=== PATIENT | male | born 1960 | race Two or more races ===

== ENCOUNTER → 2019-08-04 | Emergency (ER) | payer MEDICAID, OTHER ==
[~2019-08-04] VITALS: Ht 180.3 cm; Wt 81.6 kg
[~2019-08-04] MED LIST: KETOROLAC TROMETH 30 MG/ML 1ML VIAL IV ONE; LABETALOL HCL 5 MG/ML 4ML SYRINGE IV ONE
[2019-08-04 09:14] LABS: Eosinophils # (auto) 0 10 ^3/uL (0-0.8); Lymphocytes # (auto) 0.7 10 ^3/uL (0.4-5.4); Mean Corpuscular Volume 106.5 fL (80.0-100.0); Neutrophils # (auto) 3.8 10 ^3/uL (1.6-8.6); White Blood Cell 5.1 10^3/uL (4.4-10.8)
[2019-08-04 09:16] LABS: Basophils # (auto) 0.1 10 ^3/uL (0-0.2); Basophils % (auto) 1.2 % (0.0-2.0); Eosinophils % (auto) 0.8 % (0.0-7.0); Hematocrit 49.8 % (41.0-53.0); Hemoglobin 17.1 g/dL (13.5-17.5); Lymphocytes % (auto) 13.3 % (10.0-50.0); Mean Corpuscular Hemoglobin 36.6 pg (28.0-32.0); Mean Corpuscular Hgb Conc. 34.4 g/dL (32.0-36.0); Monocytes # (auto) 0.6 10 ^3/uL (0-1.3); Monocytes % (auto) 10.8 % (0.0-12.0); Neutrophils % (auto) 73.9 % (37.0-80.0); Platelet Count (auto) 153 10^3/uL (140-450); Red Blood Cells 4.67 10^6/uL (4.5-5.90); Red Cell Distribution Width 13.4 % (11.8-14.3)
[2019-08-04 09:36] LABS: Albumin 3.6 g/dL (3.4-5.0); Anion Gap 10 (5-15); Blood Urea Nitrogen 5 mg/dL (7-18); Calcium 8.3 mg/dL (8.5-10.1); Carbon Dioxide 22 mmol/L (21-32); Chloride 101 mmol/L (98-107); Glucose 93 mg/dL (74-106); Magnesium 2.3 mg/dL (1.6-2.6); Potassium 3.8 mmol/L (3.5-5.1); Sodium 133 mmol/L (136-145)
[2019-08-04 09:41] LABS: Alanine Aminotransferase 120 U/L (16-61); Alkaline Phosphatase 78 U/L (45-117); Aspartate Aminotransferase 137 U/L (15-37); BUN/Creatinine Ratio 8.2; Bilirubin, Total 1.8 mg/dL (0.2-1.0); GFR African American 175 mL/min; GFR Non-African American 145 mL/min; Total Protein 7.2 g/dL (6.4-8.2)
[2019-08-04 13:01] VITALS: BP 160/98
== END | disposition home or self-care (01) ==
LOC: EDUNIT# 08:38 → EDBD 08:45 → ER 08:45
DX: I60.9 Nontraumatic subarachnoid hemorrhage, unspecified (principal); Q28.2 Arteriovenous malformation of cerebral vessels; I10 Essential (primary) hypertension; F17.210 Nicotine dependence, cigarettes, uncomplicated
CPT/HCPCS: 36415; 70450; 71046; 80053; 83735; 83880; 84484; 85025; 93005; 96374; 99285; J1885